=== PATIENT | female | born 1965 | race Caucasian/White ===

== ENCOUNTER 2025-01-30 09:03 | Emergency (ER) | payer SELFPAY ==
[2025-01-30 09:03] VITALS: BP 124/90; PULSE 108; RESP 18; TEMP 36.3; O2SAT 100
--- NOTE | 2025-01-30 09:14 | ED_ITS ---
HPI - Allergic Reaction General Chief complaint: Skin/Abscess/Foreign Body Stated complaint: poison krissy rash Time Seen by Provider: 01/30/25 09:14 Source: patient Mode of arrival: ambulatory Limitations: no limitations History of Present Illness HPI narrative: 59-year-old female with a history of contact dermatitis poison krissy was weeding her yd 5 days ago. Subsequently she developed generalized erythematous rash with itching. Today she noted her rash to affect her face with involvement of her eyelids. severe itching No lip or tongue swelling. No throat swelling. No shortness of breath. No lightheadedness. MD complaint: allergic reaction and hives ( hives a generalized.) Onset (ago): day(s) ( Four days) Exposure: other ( poison krissy) Symptoms: rash and itching Severity: mild Treatment prior to arrival: none Previous Allergic Reaction History: other ( Urticarial rash to poison krissy) Related Data Allergies Allergy/AdvReac Type Severity Reaction Status Date / Time No Known Allergies Allergy Verified 01/30/25 09:12 Review of Systems Review of Systems: All systems reviewed & are unremarkable except as noted in HPI and below Exam Narrative: vitals are stable. Oxygen saturation of 100% on room air. Const: General: no acute distress Orientation/consciousness: patient oriented x3 Limitations: no limitations HENMT: Head: normal to inspection Ears: external ears normal Face/Nose/Sinus: Normal external nose present Face and sinus: normal facial exam Mouth: Yes Normal oral and palatal mucosa present Throat: posterior oropharynx normal Eyes: Conjunctivae: conjunctivae normal Pupils: Equal, round and reactive pupils present EOM: EOMs intact bilaterally Direct Ophthalmoscopy: no photophobia Neck: Neck: normal visual inspection, no lymphadenopathy and no meningeal signs Chest: Chest palpation & inspection: normal inspection of the chest Resp: Effort & Inspection: normal respiratory effort Auscultation: clear to auscultation bilaterally Cardio: Rate: regular rate Rhythm: regular rhythm GI: GI Palp: Yes Soft to palpation Auscultation: normal bowel sounds Other: No tenderness/rigidity / rebound. : General: Yes no CVA tenderness Back/Spine/Pelvis: Back: no CVA tenderness Skin: Other: Generalized erythematous rash which is itchy rash affecting eyelids. Neuro: General: patient oriented x3, moves all extremities, no meningeal signs, no focal motor deficits and CN's II-XI intact bilaterally Cranial nerves: Yes Nystagmus not present Speech: normal speech Gait exam (Neuro): Normal gait present Extrem: General: normal to inspection and no clubbing, cyanosis or edema Psych: Mental Status: mental status grossly normal Affect: normal affect Course Course Emergency Course: Generalized erythematous rash after exposure to poison krissy. Prior history of contact dermatitis to poison krissy. Vital Signs Vital signs: Vital Signs Temperature 36.3 C L 01/30/25 09:03 Pulse Rate 108 H 01/30/25 09:03 Respiratory Rate 18 01/30/25 09:03 Blood Pressure 124/90 01/30/25 09:03 Pulse Oximetry 100 01/30/25 09:03 Oxygen Delivery Room Air 01/30/25 09:03 Temperature 36.3 C L 01/30/25 09:03 Pulse Rate 108 H 01/30/25 09:03 Respiratory Rate 18 01/30/25 09:03 Blood Pressure 124/90 01/30/25 09:03 Pulse Oximetry 100 01/30/25 09:03 Oxygen Delivery Room Air 01/30/25 09:03 MDM - Allergic Reaction MDM Narrative Medical decision making narrative: Allergic contact dermatitis Differential Diagnosis Differential diagnosis: Likely adverse reaction to drug and viral enanthem Discharge Plan Discharge Clinical Impression: Allergic contact dermatitis Patient Disposition: Home Condition: Stable Instructions: Antibiotic Form, Contact Dermatitis (ED), Poison Krissy (ED) Patient Language: Indonesian Prescriptions: New prednisone 20 mg tablet 20 mg PO BID 5 Days Qty: 10 0RF Follow-up/Referrals: Millie,MENA Carvajal [Primary Care Provider] - Stand Alone Forms: Work/School Release IP Time of Disposition: 09:35
--- OUTSIDE RECORDS SUMMARY | 2025-01-30 09:34 | XMS_ITS | Clinical Summary ---
Author Organization [facility] Address [address] [place] [address] Care Team Providers Care Shear Helper Name Role Phone Unknown, Provider Primary Care Provider Unavaila ble Source Comments [facility],non-owned Affiliates and Associated Physician Practices is amultiple site organization consisting of ambulatory clinics and hospital sitesin [place], [place], [place] and [place]. This disclosure is being madepursuant to the Care Everywhere program and may not contain all information available regarding this patient. Last updated 18.[facility] Allergies No known active allergies Medications * Be aware that medications may not be up to date on this document. Alwaysverify current medications with the patient. 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 Family History Medical History Relation Name Comments Alcohol abuse Father Arthritis - Rheumatoid Mother Relation Name Status Comments Father Mother Social History Tobacco Use Types Packs/Day Years Used Date Smoking Tobacco: Every Day Cigarettes 0.5 35 Smokeless Tobacco: Never Alcohol Use Standard Drinks/Week Comments Yes 2 (1 standard drink = 0.6 oz pur e alcohol) social Comments No Sex and Gender Information Value Date Recorded Sex Assigned at Not on file Legal Sex Female 3:38 PM CDT Gender Identity Not on file Sexual Orientation Not on file Last Filed Vital Signs Vital Sign Reading Time Taken Comments Blood Pressure 114/82 01/31/2018 9:30 AM CDT Pulse 78 01/31/2018 9:30 AM CDT Temperature 36.3 C (97.4 F) 01/06/2018 2:59 PM CDT Respiratory Rate 20 01/06/2018 4:27 PM CDT Oxygen Saturation 98% 01/06/2018 3:54 PM CDT Inhaled Oxygen Concentration - - Weight 55.8 kg (123 lb) 01/31/2018 9:30 AM CDT Height 154.9 cm (5' 1) 01/31/2018 9:30 AM CDT Body Mass Index 23.24 01/31/2018 9:30 AM CDT Plan of Treatment Health Maintenance Due Date Last Done Comments COLOGUARD (AGES 45-75) - COL ON CA SCREENING 1967 COLON MONITORING 1967 COLONOSCOPY - COLON CA SCREENING 1967 CT COLONOGRAPHY - COLON CA SCREENING 1967 Colorectal Cancer Screening 1967 FIT - COLON CA SCREENING 1967 FLEX SIG - COLON CA SCREENING 1967 LIPID TESTING 1967 MAMMOGRAM 1967 HIV SCREENING 1982 HEPATITIS C SCREENING 08/04/1985 DTAP/TDAP/TD VACCINES (1 - Tdap) 1986 HEPATITIS B VACCINE (1 of 3 - 19+ 3-dose series) 1986 PNEUMOCOCCAL VACCINE 50+ (1 of 1 - PCV) 2017 ZOSTER VACCINE (1 of 2) 2017 COVID-19 VACCINE (1 - 2023-2 5 season) 2024 DEPRESSION SCREENING 07/08/2024 INFLUENZA VACCINE (#1) 2025 HIB VACCINE Aged Out No longer eligi ble based on patient's age to complete this topic HPV VACCINE Aged Out No longer eligi ble based on patient's age to complete this topic MENINGOCOCCAL (Group B) VACC INE SHARED DECISION-MAKING Aged Out No longer eligibl e based on patient's age to complete this topic MENINGOCOCCAL GROUPS A/C/Y/W VACCINE Aged Out No longer eligible b ased on patient's age to complete this topic Insurance [place] Advance Directives * Full Code (Latest Code Status on File) Date Activated Date Inactivated Comments 01/06/2018 6:52 AM 01/06/2018 6:43 PM Care Teams Shear Helper Relationship Specialty Start Date End Date Unknown, Provider PCP - General 11/29/17
--- OUTSIDE RECORDS SUMMARY | 2025-01-30 09:34 | XMS_ITS | Clinical Summary ---
Author Organization [facility] Address [address] [place] [address] Care Team Providers Care Dispute Coordinator Name Role Phone Wei Pinto Primary Care Provider [phone] Allergies No known active allergies Medications atorvastatin 20 MG tabletIndicatio ns:Hyperlipidem ia Take 20 mg by mouth nightly at bedtime. Indications: High Amount of Fats in the Blood Active hydrocodone-sue taminophen (NORCO) 5-325 MG tabletIndicatio ns:Acute Pain < 7 Day Supply Take 1 tablet by mouth every 6 (six) hours as needed for Pain. Indications: Acute Pain < 7 Day Supply 20 tablet 09/21/2019 Active Active Problems Problem Noted Date Diagnosed Date High grade squamous intraepithelial cervical dys plasia 09/21/2019 High grade squamous intraepithelial lesion (HGSI L) of vulva 09/21/2019 Family History Medical History Relation Comments COPD Mother Heart Disease Mother Relation Status Comments Father Mother Alive Social History Tobacco Use Types Packs/Day Years Used Date Smoking Tobacco: Every Day Cigarettes Smokeless Tobacco: Never Alcohol Use Standard Drinks/Week Comments Not Currently 0 (1 standard drink = 0.6 oz pur e alcohol) Comments Unknown Sex and Gender Information Value Date Recorded Sex Assigned at Not on file Legal Sex Female 1:30 PM CLAIMS SPECIALIST Gender Identity Not on file Sexual Orientation Not on file Last Filed Vital Signs Vital Sign Reading Time Taken Comments Blood Pressure 118/68 09/22/2019 7:56 AM CDT Pulse 62 09/22/2019 7:56 AM CDT Temperature 36.7 C (98.1 F) 09/22/2019 7:56 AM CDT Respiratory Rate 18 09/22/2019 7:56 AM CDT Oxygen Saturation 100% 09/22/2019 7:56 AM CDT Inhaled Oxygen Concentration - - Weight 64.9 kg (143 lb) 09/21/2019 11:14 AM CDT Height 154.9 cm (5' 1) 09/21/2019 11:14 AM CDT Body Mass Index 27.02 09/21/2019 11:14 AM CDT Plan of Treatment Health Maintenance Due Date Last Done Comments Cervical Cancer Screening Pa p Smear (Age 30 to 64) Every 3 Years 1967 Colorectal Cancer Screening Colonoscopy (10 Years) 1967 Annual Physical 1970 Hepatitis C 1985 DTaP, Tdap and Td Vaccines ( 1 - Tdap) 1986 Hepatitis B Vaccines (1 of 3 - 19+ 3-dose series) 1986 Cervical Cancer Screening Pa p with HPV Testing (Age 30 to 64) Every 5 Years 1997 Cervical Cancer Screening with HPV 1997 Mammogram Screening 2007 Pneumococcal Vaccine: 50+ Ye ars (1 of 1 - PCV) 2017 Zoster Vaccines (1 of 2) 2017 COVID-19 Vaccine ( - 2023-2 5 season) 2024 Meningococcal B Vaccine Aged Out No l onger eligible based on patient's age to complete this topic Meningococcal Vaccine Aged Out No [place] terence eligible based on patient's age to complete this topic RSV Immunizations Under 20 Months Aged Out No longer eligible based on patient's age to complete this topic Advance Directives * Full Code (Latest Code Status on File) Date Activated Date Inactivated Comments 09/21/2019 6:23 PM 09/22/2019 1:03 PM Care Teams Dispute Coordinator Relationship Specialty Start Date End Date Wei Pinto PA [address] [place] [phone] PCP - General PHYSICIAN STENCIL SPRAYER 09/04/19
--- OUTSIDE RECORDS SUMMARY | 2025-01-30 09:34 | XMS_ITS | Clinical Summary ---
Author Organization [facility] Address [address] [place] [address] Phone Care Team Providers Care Fruit Preserver Name Role Phone Provider, None Primary Care Provider Unavailabl e Allergies No known active allergies Medications No known medications Social History Tobacco Use Types Packs/Day Years Used Date Smoking Tobacco: Every Day Smokeless Tobacco: Never Alcohol Use Standard Drinks/Week Comments Not Currently 0 (1 standard drink = 0.6 oz pur e alcohol) Occasionally Comments No Sex and Gender Information Value Date Recorded Sex Assigned at Not on file Legal Sex Female 11:15 PM CDT Gender Identity Not on file Sexual Orientation Not on file Last Filed Vital Signs Vital Sign Reading Time Taken Comments Blood Pressure 127/72 04/23/2019 4:00 PM CDT Pulse 82 04/23/2019 4:10 PM CDT Temperature 36.4 C (97.5 F) 04/23/2019 12:31 PM CDT Respiratory Rate 20 04/23/2019 4:10 PM CDT Oxygen Saturation 97% 04/23/2019 4:10 PM CDT Inhaled Oxygen Concentration - - Weight 72.6 kg (160 lb) 04/23/2019 12:31 PM CDT Height 152.4 cm (5') 04/23/2019 12:31 PM CDT Body Mass Index 31.25 04/23/2019 12:31 PM CDT Plan of Treatment Health Maintenance Due Date Last Done Comments Hepatitis C Virus (HCV) Screening 1967 TdaP Immunization 1967 Hepatitis B Immunization (1 of 3 - 19+ 3-dose series) 1986 Pap Smear 1988 Cervical Cancer Screening (CCS) 1997 HPV/Cotest 1997 Cologuard 2012 Colonoscopy 2012 Colorectal Cancer Screening 2012 Immunochemical Fecal Occult Blood 2012 Pneumococcal Immunization (5 0+ years) (1 of 1 - PCV) 2017 Zoster Immunization (1 of 2) 2017 SARS-COV-2 Immunization (3 - season) 2024 04/24/2021, 03/16/2021 Influenza Immunization (#1) 2025 Respiratory Syncytial Virus (RSV) Immunization (Adult) (1 - 1-dose 75+ series) 2042 Human Papillomavirus (HPV) Immunization Aged Out No longer eligible b ased on patient's age to complete this topic Meningococcal Immunization (ACWY) Aged Out No longer eligible b ased on patient's age to complete this topic Rotavirus Immunization Aged Out No lo nger eligible based on patient's age to complete this topic Insurance [place] Care Teams Fruit Preserver Relationship Specialty Start Date End Date Provider, None [place] PCP - General 04/23/19
== END 2025-01-30 09:37 | disposition home or self-care (01) ==
LOC: CHSED 09:33
PROVIDERS: Emergency Provider Internal Medicine Critical Care Medicine; PCP Physician Assistant
DX: L23.9 Allergic contact dermatitis, unspecified cause (principal)
CPT/HCPCS: 99283